=== PATIENT | male | born 1970 | race Caucasian/White ===

== ENCOUNTER 2016-07-28 17:54 | Emergency (ER) | payer SELFPAY ==
--- NOTE | 2016-07-28 18:10 | ER Document Report ---
ED Medical Screen (RME) - General Chief Complaint: Psych Problem Stated Complaint: PSYCH EVAL Notes: 46-year-old male patient moved here from [place] 2 months ago to live with his daughter. He had been in a state hospital for 1[facility]1/2 years prior to his move here. His diagnosis is schizoaffective disorder. He has been very depressed recently and drinking heavily. He drank over a liter of Fredrick Walker read Sunday and remained passed out all day yesterday. He has made prior suicide attempts prior to his hospitalization. He is considering suicide again at this time. I have greeted and performed a rapid initial assessment of this patient. A comprehensive ED assessment and evaluation of the patient, analysis of test results and completion of the medical decision making process will be conducted by additional ED providers. TRAVEL OUTSIDE OF THE U.S. IN LAST 30 DAYS: No - Related Data Allergies/Adverse Reactions: Penicillins Allergy (Verified 07/28/16 18:01) Past Medical History Renal/ Medical History: Denies: Hx Peritoneal Dialysis Physical Exam - Vital signs Vitals: Temp Pulse Resp BP Pulse Ox 98.9 F 93 18 173/118 H 100 07/28/16 17:58 07/28/16 17:58 07/28/16 17:58 07/28/16 17:58 07/28/16 17:58 Course - Vital Signs Vital signs: Temp Pulse Resp BP Pulse Ox 98.9 F 93 18 173/118 H 100 07/28/16 17:58 07/28/16 17:58 07/28/16 17:58 07/28/16 17:58 07/28/16 17:58
[2016-07-28 18:25] LABS: ABSOLUTE BASOPHILS # (AUTO) 0.1 10^3/uL (0.0-0.2); ABSOLUTE EOSINOPHILS # (AUTO) 0.2 10^3/uL (0.0-0.6); ABSOLUTE LYMPHOCYTES (AUTO) 1.9 10^3/uL (0.5-4.7); ABSOLUTE MONOCYTES (AUTO) 0.9 10^3/uL (0.1-1.4); ABSOLUTE NEUT (AUTO) 4.8 10^3/uL (1.7-8.2); BASOPHILS % (AUTO) 0.7 % (0-2); EOSINOPHILS % (AUTO) 2.3 % (0-6); HEMATOCRIT 46.8 % (37.9-51.0); HEMOGLOBIN 16.1 g/dL (13.5-17.0); HGB HCT DIFFERENCE 1.5; LYMPHOCYTES % (AUTO) 23.9 % (13-45); MEAN CORPUSCULAR HEMOGLOBIN 30.1 pg (27.0-33.4); MEAN CORPUSCULAR HGB CONC 34.4 g/dL (32.0-36.0); MEAN CORPUSCULAR VOLUME 88 fl (80-97); MONOCYTES % (AUTO) 11.5 % (3-13); RED BLOOD COUNT 5.33 10^6/uL (4.35-5.55); RED CELL DISTRIBUTION WIDTH 14.4 % (11.5-14.0); SEGMENTED NEUTROPHILS % (AUTO) 61.6 % (42-78); WHITE BLOOD COUNT 7.9 10^3/uL (4.0-10.5)
[2016-07-28 18:44] LABS: ALANINE AMINOTRANSFERASE 129 U/L (21-72); ALBUMIN 4.8 g/dL (3.5-5.0); ALKALINE PHOSPHATASE 93 U/L (38-126); ANION GAP 14 (5-19); ASPARTATE AMINO TRANSFERASE 121 U/L (17-59); BILIRUBIN,DIRECT 0.4 mg/dL (0.0-0.4); BILIRUBIN,TOTAL 1.1 mg/dL (0.2-1.3); BLOOD UREA NITROGEN 18 mg/dL (7-20); CALCIUM 10.4 mg/dL (8.4-10.2); CARBON DIOXIDE 30 mmol/L (22-30); CHLORIDE 102 mmol/L (98-107); CREATININE RESULT 0.98 mg/dL (0.52-1.25); GLUCOSE 97 mg/dL (75-110); POTASSIUM 4.7 mmol/L (3.6-5.0); SODIUM 146.3 mmol/L (137-145); TOTAL PROTEIN 7.7 g/dL (6.3-8.2)
[2016-07-28 18:45] LABS: ALCOHOL < 10 mg/dL (NONE DETECTED)
--- NOTE | 2016-07-28 21:53 | EKG REPORT ---
SEVERITY:- NORMAL ECG - SINUS RHYTHM : Confirmed by: Susan Santos MD 28-Jul-2016 21:52:22
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
[2016-07-28] MEDS ORDERED: MIRTAZAPINE 15 MG TABLET PO ONE (23:58)
[2016-07-28] MEDS ORDERED: LORAZEPAM 1 MG TABLET PO ONE (23:59)
[2016-07-29] MEDS: HYDROXYZINE PAMOATE 50 MG CAPSULE PO PRN (10:42)
[2016-07-29 11:02] LABS: APPEARANCE,URINE CLEAR; BILIRUBIN,URINE NEGATIVE (NEGATIVE); GLUCOSE, URINE NEGATIVE (NEGATIVE); KETONES,URINE NEGATIVE (NEGATIVE); LEUKOCYTE ESTERASE,URINE NEGATIVE (NEGATIVE); NITRITE,URINE NEGATIVE (NEGATIVE); PROTEIN,URINE NEGATIVE (NEGATIVE); URINE SPECIFIC GRAVITY 1.012; UROBILINOGEN,URINE NEGATIVE mg/dL (<2.0)
[2016-07-29 11:14] LABS: URINE BARBITURATES SCREEN NEGATIVE; URINE METHADONE SCREEN NEGATIVE; URINE PHENCYCLIDINE SCREEN NEGATIVE
--- NOTE | 2016-07-29 11:14 | ER Document Report ---
Doctor's Note Notes: 07/29/16 11:12 Rounds: Chart reviewed and patient interviewed. Patient has complained of being anxious and wanting something for his anxiety. Has been an outpatient on Ativan in the past. Recently moved here from [place]. Says he's feeling suicidal and depressed. Reportedly alcohol abuse, as well. Vital signs are all essentially normal. Lab studies are essentially unremarkable except for minor elevations of his LFTs and the patient has not provided us with a urine for a drug screen yet. I ordered Vistaril for him to take as needed for his anxiety. Patient appears to be medically stable for transfer or discharge. Elizabeth Teran M.D.
[2016-07-29 11:25] LABS: URINE OPIATES LOW NEGATIVE
[2016-07-29] MEDS: BUSPIRONE HCL 10 MG TABLET PO SCH (18:00)
[2016-07-29] MEDS ORDERED: GABAPENTIN 300 MG CAPSULE PO SCH (19:45)
[2016-07-29] MEDS ORDERED: LITHIUM CARBONATE 300 MG CAPSULE PO SCH (19:45)
[2016-07-29] MEDS: GABAPENTIN 300 MG CAPSULE PO SCH (20:21)
[2016-07-29] MEDS: LITHIUM CARBONATE 300 MG CAPSULE PO SCH (20:21)
[2016-07-29] MEDS: BENZTROPINE MESYLATE 1 MG TABLET PO SCH (22:18)
[2016-07-29] MEDS: QUETIAPINE FUMARATE 25 MG TABLET PO SCH (22:18)
[2016-07-30] MEDS: GABAPENTIN 300 MG CAPSULE PO SCH ×3 (05:50→22:49)
[2016-07-30] MEDS: BUSPIRONE HCL 10 MG TABLET PO SCH ×2 (08:24→17:18)
[2016-07-30] MEDS: LITHIUM CARBONATE 300 MG CAPSULE PO SCH ×2 (08:25→22:49)
[2016-07-30] MEDS: OLANZAPINE 2.5 MG TABLET PO SCH (08:25)
--- NOTE | 2016-07-30 11:30 | ER Document Report ---
Doctor's Note Notes: 07/30/16 11:28 Rounds: Chart reviewed and patient interviewed. Patient seems to be calmer and less agitated than yesterday. Says he still feels depressed. Seems to be subdued. Vital signs are all normal. Patient has a trivial elevation in his LFTs. Drug screen that was eventually obtained yesterday was negative. Patient appears to be medically stable for transfer or discharge. Elizabeth Teran M.D.
[2016-07-30] MEDS: QUETIAPINE FUMARATE 25 MG TABLET PO SCH (22:48)
[2016-07-30] MEDS: BENZTROPINE MESYLATE 1 MG TABLET PO SCH (22:49)
[2016-07-31] MEDS: HYDROXYZINE PAMOATE 50 MG CAPSULE PO PRN (10:12)
[2016-07-31] MEDS: OLANZAPINE 2.5 MG TABLET PO SCH (10:18)
[2016-07-31] MEDS: BUSPIRONE HCL 10 MG TABLET PO SCH (10:18)
[2016-07-31] MEDS: LITHIUM CARBONATE 300 MG CAPSULE PO SCH (10:18)
--- NOTE | 2016-07-31 10:28 | ER Document Report ---
ED Psych Disorder / Suicide - General Mode of Arrival: Ambulatory Information source: Patient, Relative - Daughter, [facility] Records TRAVEL OUTSIDE OF THE U.S. 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 - Schizoaffective Disorder, Other - Anxious Situational problems related to: Other - recently relocated from [place] Normal mood: Yes - today Associated symptoms: Normal affect - today, Normal mood - today, Anxious - per patient, Depressed - [employer] Similar symptoms previously: Yes - inpatient in [place] x1.5 years Recently seen / treated by doctor: Yes - [facility] [place] <GIULIANO MOSER - Last Filed: 07/31/16 10:16> <VALERI MCDONALD - Last Filed: 07/31/16 10:56> - General Chief Complaint: Psych Problem Stated Complaint: PSYCH EVAL - HPI Notes: Patient is a 46-year-old male who initially presented with complaints of increased depressive symptoms and suicidal ideations with the plan to use his son in-laws gun to commit suicide. Patient reportedly recently moved from [place], where he was reportedly inpatient 1-1/2 years. The exact circumstances of this are unclear. Patient currently resides with his daughter , son-in-law, and grand baby. Patient has been followed by [facility], but was not compliant with his medications. Patient currently denies any suicidal/ homicidal ideations and there is no evidence of psychosis. Patient denies depressive symptoms. Patient reports excessive anxiety. Patient's daughter presented last night and discussed with her follow-up care. Daughter states the patient will apply for Medicaid August 07, but states she will continue to pay out of pocket for the patient to have medication management. Daughter in agreement patient would benefit from counseling. Provided psychoeducation to daughter inpatient in regards to outpatient providers in services to include agencies who can access state funding dollars for treatment purposes. Daughter states she will call around in the morning and attempted to secure an outpatient appointment. She states until then she will pay hayes for him to be seen by his psychiatric provider. She reported no concerns in regards to his safety or the safety of anyone in her home. Patient is alert and oriented 4. Mood is euthymic with blunted affect. Patient denies suicidal/homicidal ideations, intent, plan, means. Patient denies A/VH; delusions not noted. Thought processes were organized. Conversational speech was WNL for this patient. Attention and focus were good. Insight, judgment were fair; impulse control were good. Schizo affective disorder per history Patient is psychiatrically cleared for discharge and recommended for rescind IVC. Patient no longer meets criteria for involuntary commitment per [place] general statute 122C as he denies suicidal ideations. Patient has been in this department for going on for days receiving pharmacological intervention. Patient is encouraged to follow up with outpatient counseling to assist him in coping with his new environment. Patient is likely accustomed to residing in a facility type setting as he was reportedly inpatient 1.5 years prior to relocating to [place]. I consulted with Dr. Kidd in regards to the care and management of this patient. (GIULIANO MOSER) - Related Data Allergies/Adverse Reactions: Penicillins Allergy (Verified 07/28/16 18:01) Home Medications: Current Home Medications Benztropine Mesylate [Cogentin 1 mg Tablet] 0.5 mg PO DAILY 07/30/16 [History] [place] Carbonate [[place] Carbonate ER] 450 mg PO DAILY 07/30/16 [History] [place] Carbonate [[place] Carbonate] 300 mg PO DAILYP PRN 07/30/16 [History] Lorazepam [Ativan 1 mg Tablet] 1 mg PO TID 07/30/16 [History] Mirtazapine [Remeron] 30 mg PO DAILY 07/30/16 [History] Paliperidone [Invega] 12 mg PO DAILY 07/30/16 [History] Past Medical History - General Information source: Patient - Social History Smoking Status: Unknown if Ever Smoked Chew tobacco use (# tins/day): No Frequency of alcohol use: Rare Drug Abuse: None Family History: Reviewed & Not Pertinent Patient has suicidal ideation: Yes Patient has homicidal ideation: No Renal/ Medical History: Denies: Hx Peritoneal Dialysis Psychiatric Medical History: Reports: Hx Depression - anxiety Past Surgical History: Reports: Hx Abdominal Surgery, Hx Cholecystectomy <GIULIANO MOSER - Last Filed: 07/31/16 10:16> Course - Laboratory Result Diagrams: 07/28/16 18:15 07/28/16 18:15 <GIULIANO MOSER - Last Filed: 07/31/16 10:16> - Laboratory Result Diagrams: 07/28/16 18:15 07/28/16 18:15 <VALERI MCDONALD - Last Filed: 07/31/16 10:56> - Vital Signs Vital signs: Temp Pulse Resp BP Pulse Ox 97.6 F 63 18 113/65 96 07/30/16 22:45 07/30/16 22:45 07/30/16 22:45 07/30/16 22:45 07/30/16 22:45 - Laboratory Laboratory results interpreted by me: 07/28/16 07/28/16 07/29/16 18:15 18:15 17:48 RDW 14.4 H Sodium 146.3 H Calcium 10.4 H AST 121 H ALT 129 H Salicylates < 1.0 L Acetaminophen < 10 L [place] < 0.2 L Discharge <GIULIANO MOSER - Last Filed: 07/31/16 10:16> <VALERI MCDONALD - Last Filed: 07/31/16 10:56> - Discharge Clinical Impression: Suicidal ideation, Elevated blood pressure reading, Cellulitis of head except face Schizoaffective disorder Qualifiers: Schizoaffective disorder type: unspecified Qualified Code(s): F25.9 - Schizoaffective disorder, unspecified Depression Qualifiers: Depression Type: unspecified Qualified Code(s): F32.9 - Major depressive disorder, single episode, unspecified Condition: Stable Disposition: HOME, SELF-CARE Additional Instructions: Schizophrenia Schizophrenia is a chemical disorder that affects how the brain functions. The exact cause is unknown, but it tends to run in families. It is NOT caused by emotional trauma. Schizophrenia causes disordered thinking, including unusual beliefs and inability to "process" happenings around the patient. Patients with schizophrenia benefit greatly from medicine. These medicines are called antipsychotics. Never stop the medicine without the doctor 's approval. Counselling may help the patient deal with his disease. Schizophrenics require a very ordered environment. Stresses and sudden changes may bring out symptoms. Drugs and alcohol abuse may become problems. Contact the counsellor or crisis line if there are thoughts of suicide or of harming others, or if you become aware of unusual thoughts or beliefs Please follow-up with your psychiatric provider within 3-5 days. Please consider engaging in outpatient therapy. Please take all medications as prescribed. Please refrain from any drinking and or drug use do to the adverse effects with her medications and emotional stability. Prescriptions: Benztropine Mesylate [Cogentin 1 mg Tablet] 1 mg PO QHS #7 tablet Quetiapine Fumarate [Seroquel 25 mg Tablet] 50 mg PO QHS 7 Days Hydroxyzine Pamoate [Vistaril 50 mg Capsule] 50 mg PO Q6HP PRN 7 Days PRN Reason: Buspirone HCl [Buspar 5 mg Tablet] 1 tab PO BID #14 tab Clindamycin HCl 300 mg PO Q6 #40 capsule Gabapentin [Neurontin 300 mg Capsule] 300 mg PO Q8 7 Days [place] Carbonate 300 mg PO BID #7 tablet Olanzapine [Zyprexa 2.5 Mg Tablet] 2.5 mg PO QAM #7 tablet Referrals: [facility] [Provider Group] - Follow up as needed
[2016-07-31 11:17] VITALS: BP 113/54
== END 2016-07-31 11:05 | disposition home or self-care (01) ==
LOC: ER 17:54
DX: L03.811 Cellulitis of head [any part, except face] (principal); R45.851 Suicidal ideations; R03.0 Elevated blood-pressure reading, without diagnosis of hypertension; R19.7 Diarrhea, unspecified; F25.9 Schizoaffective disorder, unspecified; Z88.0 Allergy status to penicillin; Z90.49 Acquired absence of other specified parts of digestive tract
CPT/HCPCS: 93005; 99284; 36415; 80307 ×4; 80178; 85025; 80053; 81001; 93010; J3490 ×5

== ENCOUNTER 2016-11-07 22:51 | Emergency (ER) | payer SELFPAY ==
[2016-11-07 23:20] VITALS: BP 127/81
== END 2016-11-08 00:06 | disposition left against medical advice (07) ==
LOC: ER 22:51
DX: Z53.21 Procedure and treatment not carried out due to patient leaving prior to being seen by health care provider (principal)

== ENCOUNTER 2016-11-08 01:23 | Emergency (ER) | payer SELFPAY ==
[2016-11-08 02:34] LABS: ABSOLUTE LYMPHOCYTES (AUTO) 1.6 10^3/uL (0.5-4.7); ABSOLUTE MONOCYTES (AUTO) 0.9 10^3/uL (0.1-1.4); ABSOLUTE NEUT (AUTO) 10.2 10^3/uL (1.7-8.2); BASOPHILS % (AUTO) 0.2 % (0-2); EOSINOPHILS % (AUTO) 0.2 % (0-6); HEMOGLOBIN 15.1 g/dL (13.5-17.0); HGB HCT DIFFERENCE 1.3; LYMPHOCYTES % (AUTO) 12.7 % (13-45); MEAN CORPUSCULAR HEMOGLOBIN 29.9 pg (27.0-33.4); MEAN CORPUSCULAR HGB CONC 34.4 g/dL (32.0-36.0); MEAN CORPUSCULAR VOLUME 87 fl (80-97); MONOCYTES % (AUTO) 6.7 % (3-13); RED BLOOD COUNT 5.07 10^6/uL (4.35-5.55); RED CELL DISTRIBUTION WIDTH 13.4 % (11.5-14.0); SEGMENTED NEUTROPHILS % (AUTO) 80.2 % (42-78); WHITE BLOOD COUNT 12.7 10^3/uL (4.0-10.5)
[2016-11-08 02:35] LABS: APPEARANCE,URINE CLEAR; BILIRUBIN,URINE NEGATIVE (NEGATIVE); GLUCOSE, URINE NEGATIVE (NEGATIVE); KETONES,URINE NEGATIVE (NEGATIVE); LEUKOCYTE ESTERASE,URINE NEGATIVE (NEGATIVE); NITRITE,URINE NEGATIVE (NEGATIVE); PROTEIN,URINE NEGATIVE (NEGATIVE); URINE SPECIFIC GRAVITY 1.003; UROBILINOGEN,URINE NEGATIVE mg/dL (<2.0)
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
[2016-11-08 02:46] LABS: ALANINE AMINOTRANSFERASE 46 U/L (21-72); ALBUMIN 4.5 g/dL (3.5-5.0); ALCOHOL 189 mg/dL (NONE DETECTED); ALKALINE PHOSPHATASE 73 U/L (38-126); ANION GAP 14 (5-19); ASPARTATE AMINO TRANSFERASE 35 U/L (17-59); BILIRUBIN,DIRECT 0.3 mg/dL (0.0-0.4); BILIRUBIN,TOTAL 0.6 mg/dL (0.2-1.3); BLOOD UREA NITROGEN 10 mg/dL (7-20); CALCIUM 9.2 mg/dL (8.4-10.2); CARBON DIOXIDE 25 mmol/L (22-30); CHLORIDE 102 mmol/L (98-107); CREATININE RESULT 1.08 mg/dL (0.52-1.25); GLUCOSE 87 mg/dL (75-110); TOTAL PROTEIN 7.5 g/dL (6.3-8.2)
[2016-11-08 02:59] LABS: URINE BARBITURATES SCREEN NEGATIVE; URINE METHADONE SCREEN NEGATIVE; URINE OPIATES LOW NEGATIVE; URINE PHENCYCLIDINE SCREEN NEGATIVE
--- NOTE | 2016-11-08 07:50 | EKG REPORT ---
SEVERITY:- NORMAL ECG - SINUS RHYTHM : Confirmed by: Nilesh Hernandez MD 08-Nov-2016 07:49:29
[2016-11-08] MEDS ORDERED: HALOPERIDOL 5 MG TABLET PO PRN (09:13)
[2016-11-08] MEDS ORDERED: OLANZAPINE 5 MG TABLET PO SCH (10:00)
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
--- NOTE | 2016-11-08 11:39 | ER Document Report ---
Doctor's Note Notes: 11/08/16 11:39 Patient reevaluated this morning. He is resting comfortably in the bed but not sleeping. He states that he has no concerns at this time. Patient is awaiting disposition. Patient apparently did have some agitation earlier this morning but this appears to be controlled with medication.
[2016-11-08 14:49] VITALS: BP 108/58
[2016-11-08] MEDS ORDERED: LITHIUM CARBONATE 300 MG CAPSULE PO SCH (22:00)
[2016-11-08] MEDS ORDERED: BENZTROPINE MESYLATE 1 MG TABLET PO SCH (22:00)
== END 2016-11-08 15:51 ==
LOC: ER 01:23
DX: R45.851 Suicidal ideations (principal); R45.850 Homicidal ideations; M79.602 Pain in left arm; V49.40XA Driver injured in collision with unspecified motor vehicles in traffic accident, initial encounter; R45.1 Restlessness and agitation; Z88.0 Allergy status to penicillin
CPT/HCPCS: 36415; 80053; 80178; 80307; 81001; 85025; 93005; 93010; 99284